=== PATIENT | male | born 1970 | race Caucasian/White ===

== ENCOUNTER 2021-03-02 07:56 | Emergency (ER) | payer BC ==
[~2021-03-02] VITALS: Ht 182 cm; Wt 111.0 kg
[2021-03-02] MEDS ORDERED: NITROGLYCERIN 0.4 MG SL TABS BTL 25'S SL PRN (08:00)
[2021-03-02] MEDS ORDERED: ASPIRIN 81 MG CHEW (CHILDREN'S ASA) PO ONE (08:00)
--- OUTSIDE RECORDS SUMMARY | 2021-03-02 08:01 | XMS REPORT ---
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 Medications Active Name Start Date Estimated Completion Date SIG Co mments fluticasone propionate 50 mcg/actuation nasal spray,suspension spray 1 spray (50 mcg) in each nostril by intranasal route once daily Name Start Date Expiration Date SIG Comments valacyclovir 1 gram oral tablet 05/25/2018 05/20/2019 take 1 tablet (1,000 mg) by oral route once daily for 90 days amoxicillin 500 mg oral tablet 01/30/2019 02/06/2019 t darlin 1 tablet (500 mg) by oral route every 12 hours for 7 days Discontinued Name Start Date Discontinued Date SIG Comments baclofen 20 mg oral tablet 01/28/2016 02/19/2016 take 1 tablet (20 mg) by oral route 3 times per day montelukast 10 mg oral tablet 01/30/2019 02/23/2020 ta ke 1 tablet (10 mg) by oral route once daily in the evening omeprazole 20 mg oral capsule,delayed release(DR/EC) 02/23/2020 09/06/2020 take 1 capsule (20 mg) by oral route once daily before a meal constipation Problem List Description Status Onset Abdominal pain, lower Active 02/19/2016 Spermatocele Active 02/19/2016 Bilateral groin pain Active 02/19/2016 Vital Signs Date Time BP-Sys(mm[Hg] BP-Rtinidad(mm[Hg]) HR(bpm) RR(rpm) Temp WT HT HC BMI BSA BMI Percentile O2 Sat(%) 12/20/2020 7:58:00 AM 130 mm[Hg] 78 mm[Hg] 64 {beats}/min 18 rpm 97.5 F 254 lbs 72 in 34.4482 kg/m2 2.4193 m2 99 % 09/06/2020 8:04:00 AM 130 mm[Hg] 78 mm[Hg] 64 {beats}/min 18 rpm 98.6 F 248 lbs 72 in 33.63 kg/m2 2.39 m2 98 % 02/23/2020 8:04:00 AM 130 mm[Hg] 74 mm[Hg] 71 {beats}/min 18 rpm 97.5 F 244 lbs 72 in 33.09 kg/m2 2.37 m2 99 % 01/30/2019 2:25:00 PM 148 mm[Hg] 82 mm[Hg] 82 {beats}/min 18 rpm 97.5 F 248 lbs 72 in 33.6345 kg/m2 2.3905 m2 95 % 05/12/2018 3:48:00 PM 128 mm[Hg] 60 mm[Hg] 74 {beats}/min 20 rpm 97.9 F 252 lbs 72 in 34.18 kg/m2 2.41 m2 99 % 10/08/2017 8:49:00 AM 134 mm[Hg] 70 mm[Hg] 70 {beats}/min 18 rpm 98.8 F 258 lbs 72 in 34.9907 kg/m2 2.4382 m2 97 % 09/03/2017 7:57:00 AM 148 mm[Hg] 82 mm[Hg] 94 {beats}/min 20 rpm 98.2 F 258 lbs 72 in 34.99 kg/m2 2.44 m2 99 % 02/19/2016 11:31:00 AM 136 mm[Hg] 72 mm[Hg] 74 {beats}/min 17 rpm 97.8 F 252.5 lbs 72 in 34.2448 kg/m2 2.4121 m2 100 % 02/17/2016 4:00:00 PM 138 mm[Hg] 82 mm[Hg] 78 {beats}/min 16 rpm 98.5 F 252.5 lbs 72 in 34.24 kg/m2 2.41 m2 100 % 01/28/2016 10:30:00 AM 135 mm[Hg] 85 mm[Hg] 72 {beats}/min 16 rpm 96.7 F 245 lbs 98 % 02/13/2015 3:16:00 PM 120 mm[Hg] 90 mm[Hg] 75 {beats}/min 98.4 F 256.25 lbs 72 in 34.75 kg/m2 2.43 m2 96 % Social History Name Description Comments Single GED Tobacco Former smoker here and there when he was younger Recovering Alcoholic [employer] History of Procedures Date Ordered Description Order Status 02/19/2016 12:38 PM URINALYSIS AUTO W/O SCOPE Reviewed 02/18/2016 12:00 AM US EXAM SCROTUM Returned 09/03/2017 12:00 AM Home sleep study Reviewed 05/12/2018 12:00 AM HERPES SIMPLEX TYPE 1 TEST Reviewed 05/12/2018 12:00 AM HERPES SIMPLEX TYPE 2 TEST Reviewed 09/06/2020 12:00 AM CHEST X-RAY 2VW FRONTAL&LATL Reviewed 09/06/2020 12:00 AM ECHO EXAM OF ABDOMEN Reviewed Results Summary Date and Description Results 02/19/2016 12:38 PM Clarity Ur CLEAR Color Ur -- ----- Glucose Ur-sCnc -VE Bilirub Ur Ql Strip -VE Ketones Ur Ql Strip -VE Sp Gr Ur Qn 1010 Hgb Ur Ql Strip -VE pH Ur-LsCnc 6.0 Prot Ur Ql Strip -VE Urobilinogen Ur-mCnc -VE Nitrite Ur Ql Strip -VE WBC Est Ur Ql Strip -VE 05/12/2018 4:15 PM HSV 1 IgG, Type Spec 1.130 I ndexHSV 2 IgG, Type Spec 4.070 IndexHSV-2 IgG SupplementalTest Positive History Of Immunizations Not available. History of Past Illness Name Date of Onset Comments Abdominal pain, lower 02/19/2016 Spermatocele 02/19/2016 Bilateral groin pain 02/19/2016 Acid Reflux Feb 13 2015 3:19PM Chest discomfort Feb 13 2015 3:19PM Costochondritis Feb 13 2015 3:19PM Transient insomnia Feb 13 2015 3:19PM Lumbago with sciatica, left side Jan 28 2016 10:32AM Pain in right testicle Feb 17 2016 4:03PM Swelling of right testicle Feb 17 2016 4:03PM Right Bilateral groin pain Feb 19 2016 11:37AM Right Spermatocele Feb 19 2016 11:37AM Right Abdominal pain, lower Feb 19 2016 11:37AM Hypersomnolence Sep 03 2017 7:59AM Incisional hernia Oct 08 2017 8:51AM Vesicular rash May 12 2018 3:50PM Acute non-recurrent maxillary sinusitis Jan 30 2019 2:32PM Abdominal Pain, Generalized Feb 23 2020 8:07AM Right upper quadrant abdominal pain Sep 06 2020 8:07AM Shortness of breath Sep 06 2020 8:07AM Sleep apnea Dec 20 2020 8:01AM Screening for colon cancer Dec 20 2020 8:01AM Screening for ischemic heart disease Dec 20 2020 8:01AM Payers Insurance Name Company Name Plan Name Plan Number Policy Number [place] Group Number Start Date BCBS [employer] [place] [id number] N/A Cigna Cigna [id number] N/A BCBS Bcbs [facility] [id number] N/ A History of Encounters Visit Date Visit Type Provider 12/20/2020 Office visit Jose Miguel Kauffman DO 09/06/2020 Office visit Jose Miguel Kauffman DO 02/23/2020 Office visit Jose Miguel Kauffman DO 01/30/2019 Office visit Jose Miguel Kauffman DO 05/12/2018 Office visit Jose Miguel Kauffman DO 10/08/2017 Office visit Jose Miguel Kauffman DO 09/03/2017 Office visit Jose Miguel Kauffman DO 02/19/2016 Office visit Kiah Perez MD 02/17/2016 Office visit Melida Blankenship MD 01/28/2016 Office visit Daniel Richmond 02/13/2015 Office visit Melida Blankenship MD
--- OUTSIDE RECORDS SUMMARY | 2021-03-02 08:01 | XMS REPORT ---
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
[2021-03-02 08:14] LABS: BASOPHILS % (AUTO) 1 % (0-10); EOSINOPHILS % (AUTO) 1 % (0-10); HEMATOCRIT 46 % (40-54); HEMOGLOBIN 15.5 g/dL (13.3-17.7); LYMPHOCYTES # (AUTO) 0.8 10^3/uL (1.0-4.0); LYMPHOCYTES % (AUTO) 18 % (12-44); MEAN CORPUSCULAR HEMOGLOBIN 30 pg (25-34); MEAN CORPUSCULAR HGB CONC 33 g/dL (32-36); MEAN CORPUSCULAR VOLUME 90 fL (80-99); MEAN PLATELET VOLUME 9.5 fL (9.0-12.2); MONOCYTES % (AUTO) 23 % (0-12); NEUTROPHILS # (AUTO) 2.4 10^3/uL (1.8-7.8); NEUTROPHILS % (AUTO) 56 % (42-75); PLATELET COUNT 200 10^3/uL (130-400); WHITE BLOOD COUNT 4.2 10^3/uL (4.3-11.0)
--- NOTE | 2021-03-02 08:22 | ED Chest Pain ---
General Chief Complaint: Chest Pain Stated Complaint: CHEST PAIN Source: patient History of Present Illness Date Seen by Provider: Mar 02, 2021 Time Seen by Provider: 07:58 Initial Comments PT ARRIVES VIA POV FROM HOME C/O MID CHEST PAIN SINCE YESTERDAY AFTERNOON PAIN IS CONSTANT, AND IS PRESSURE --RATES 5/10 NO RADIATION OF PAIN NOTHING WORSENS OR IMPROVES PAIN STATES HE HAS FELT HOT AND HAD CHILLS OFF AND ON FOR THE LAST COUPLE OF DAYS HAS HAD A SLIGHT COUGH OFF AND ON FOR THE LAST WEEK OR TWO NO SHORTNESS OR BREATH HAS HAD HEADACHE C/O NECK AND BACK ACHE, BUT HAS CHRONIC NECK AND BACK PAIN NO GI SYMPTOMS NO SORE THROAT NO LOSS OF TASTE OR SMELL NO DIZZINESS NO PALPITATIONS NO SYNCOPE NO SWEATS NO HISTORY SIMILAR, OR ANY CARDIAC OR RESPIRATORY PROBLEMS PT HAS NOT TAKEN ANYTHING FOR SYMPTOMS TOOK FLEXERIL AND IBUPROFEN 02/28/21 FOR CHRONIC NECK AND BACK PAIN, BUT HAS NOT TAKEN ANYTHING FOR THIS PAIN SINCE YESTERDAY PT HAS NOT HAD COVID-19 VACCINE. PCP: DR. PETERSON IN [place]--HAS NOT SEEN LATELY Allergies and Home Medications Allergies Coded Allergies: No Known Drug Allergies (Unverified , 07/20/11) Patient Home Medication List Home Medication List Reviewed: Yes Review of Systems Review of Systems Constitutional: see HPI, chills EENTM: No Symptoms Reported Respiratory: See HPI, Cough; Denies Shortness of Air Cardiovascular: See HPI, Chest Pain; Denies Edema, Denies Irregular Heart Rate, Denies Lightheadedness, Denies Palpitations, Denies Syncope Gastrointestinal: No Symptoms Reported; Denies Abdominal Pain, Denies Diarrhea, Denies Nausea, Denies Vomiting Genitourinary: No Symptoms Reported Musculoskeletal: see HPI, back pain, neck pain Skin: no symptoms reported Psychiatric/Neurological: See HPI, Headache Endocrine: No Symptoms Reported Hematologic/Lymphatic: No Symptoms Reported Past [id number]-Mgputa-[id number] Hx Patient Social History Tobacco Use?: No Substance use?: Yes Additional substance use comme: SMOKED MARIJUANA AND SNORTED COCAINE 24 YEARS AGO Alcohol Use?: Yes (HEAVY ETOH USE 24 YEARS AGO) Past Medical History Surgery/Hospitalization HX: TONSILLECTOMY/ADENOIDECTOMY BILATERAL INGUINAL HERNIA REPAIR EVACUATION OF HEMATOMA OF KNEE Surgeries: Yes Abdominal, Adenoidectomy, Tonsillectomy Respiratory: No Cardiac: No Neurological: No Reproductive Disorders: No Genitourinary: No Gastrointestinal: Yes (BILATERAL INGUINAL HERNIA REPAIR) Musculoskeletal: Yes (CHRONIC NECK AND BACK PAIN ) Chronic Back Pain Endocrine: No HEENT: Yes (S/P T&A) Tonsilitis Cancer: No Psychosocial: No Integumentary: No Blood Disorders: No Physical Exam Vital Signs Vital Signs - First Documented 03/02/21 07:56 Temp 36.3 Pulse 66 Resp 15 B/P (MAP) 158/97 (117) Pulse Ox 99 Capillary Refill : Height, Weight, BMI Height: '" Weight: lbs. oz. kg; BMI Method: General Appearance: No Apparent Distress, WD/WN, Other (DOES NOT APPEAR ILL OR TO BE IN ANY DISCOMFORT OR DISTRESS. ) HEENT: PERRL/EOMI Neck: Normal Inspection Respiratory: Chest Non Tender, Normal Breath Sounds, No Accessory Muscle Use, No Respiratory Distress Cardiovascular: Regular Rate, Rhythm, No Edema, No JVD, No Murmur, Normal Peripheral Pulses Gastrointestinal: Non Tender, Soft Extremity: Normal Capillary Refill, Normal Inspection, Normal Range of Motion, Non Tender, No Calf Tenderness, No Pedal Edema Neurologic/Psychiatric: Alert, Oriented x3, No Motor/Sensory Deficits, Normal Mood/Affect, aircraft part assembler II-XII Norm as Tested Skin: Normal Color, Warm/Dry Progress/Results/Core Measures Results/Orders Lab Results Laboratory Tests Test 03/02/21 07:59 03/02/21 08:00 Range/Units Influenza Type A (RT-PCR) Not Detected Not Detecte Influenza Type B (RT-PCR) Not Detected Not Detecte SARS-CoV-2 RNA (RT-PCR) Detected H Not Detecte White Blood Count 4.2 L 4.3-11.0 10^3/uL Red Blood Count 5.14 4.30-5.52 10^6/uL Hemoglobin 15.5 13.3-17.7 g/dL Hematocrit 46 40-54 % Mean Corpuscular Volume 90 80-99 fL Mean Corpuscular Hemoglobin 30 25-34 pg Mean Corpuscular Hemoglobin Concent 33 32-36 g/dL Red Cell Distribution Width 13.2 10.0-14.5 % Platelet Count 200 130-400 10^3/uL Mean Platelet Volume 9.5 9.0-12.2 fL Immature Granulocyte % (Auto) 2 % Neutrophils (%) (Auto) 56 42-75 % Lymphocytes (%) (Auto) 18 12-44 % Monocytes (%) (Auto) 23 H 0-12 % Eosinophils (%) (Auto) 1 0-10 % Basophils (%) (Auto) 1 0-10 % Neutrophils # (Auto) 2.4 1.8-7.8 10^3/uL Lymphocytes # (Auto) 0.8 L 1.0-4.0 10^3/uL Monocytes # (Auto) 1.0 0.0-1.0 10^3/uL Eosinophils # (Auto) 0.0 0.0-0.3 10^3/uL Basophils # (Auto) 0.0 0.0-0.1 10^3/uL Immature Granulocyte # (Auto) 0.1 0.0-0.1 10^3/uL Neutrophils % (Manual) 51 % Lymphocytes % (Manual) 19 % Monocytes % (Manual) 24 % Eosinophils % (Manual) 1 % Basophils % (Manual) 0 % Myelocytes % 1 % Band Neutrophils 4 % Blood Morphology Comment NORMAL Erythrocyte Sedimentation Rate 2 0-30 MM/HR Prothrombin Time 13.1 12.2-14.7 SEC INR Comment 1.0 0.8-1.4 Activated Partial Thromboplast Time 31 24-35 SEC D-Dimer 0.28 0.00-0.49 UG/ML Sodium Level 138 135-145 MMOL/L Potassium Level 3.9 3.6-5.0 MMOL/L Chloride Level 100 98-107 MMOL/L Carbon Dioxide Level 26 21-32 MMOL/L Anion Gap 12 5-14 MMOL/L Blood Urea Nitrogen 10 7-18 MG/DL Creatinine 1.12 0.60-1.30 MG/DL Estimat Glomerular Filtration Rate 69 BUN/Creatinine Ratio 9 Glucose Level 116 H 70-105 MG/DL Calcium Level 9.2 8.5-10.1 MG/DL Corrected Calcium 8.9 8.5-10.1 MG/DL Magnesium Level 2.0 1.6-2.4 MG/DL Total Bilirubin 0.7 0.1-1.0 MG/DL Aspartate Amino Transf (AST/SGOT) 22 5-34 U/L Alanine Aminotransferase (ALT/SGPT) 34 0-55 U/L Alkaline Phosphatase 54 40-136 U/L Lactate Dehydrogenase 207 125-220 U/L Total Creatine Kinase 120 30-200 U/L Creatine Kinase MB 2.3 <6.6 NG/ML Myoglobin 71.0 10.0-92.0 NG/ML Troponin I < 0.028 <0.028 NG/ML C-Reactive Protein High Sensitivity 0.27 0.00-0.50 MG/DL B-Type Natriuretic Peptide 18.4 <100.0 PG/ML Total Protein 7.1 6.4-8.2 GM/DL Albumin 4.4 3.2-4.5 GM/DL Amylase Level 36 25-125 U/L Lipase 11 8-78 U/L Procalcitonin 0.03 <0.10 NG/ML My Orders Orders - IRAMCECILLE DO Cbc With Automated Diff (03/02/21 07:59) Magnesium (03/02/21 07:59) Chest 1 View, Ap/Pa Only (03/02/21 07:59) Ekg Tracing (03/02/21 07:59) Comprehensive Metabolic Panel (03/02/21 07:59) Myoglobin Serum (03/02/21 07:59) Protime With Inr (03/02/21 07:59) Partial Thromboplastin Time (03/02/21 07:59) O2 (03/02/21 07:59) Monitor-Rhythm Ecg Trace Only (03/02/21 07:59) Ed Iv/Invasive Line Start (03/02/21 07:59) Creatine Kinase (03/02/21 07:59) Creatine Kinase Mb (03/02/21 07:59) Lipase (03/02/21 07:59) Amylase (03/02/21 07:59) Bnp [place] (03/02/21 07:59) Fibrin Degradation Products (03/02/21 07:59) Troponin I Roel (03/02/21 07:59) Nitroglycerin 0.4 Mg Btl 25's (Nitrostat (03/02/21 08:00) Aspirin Chewable Tablet (Baby Aspirin Ch (03/02/21 08:00) Procalcitonin (Pct) (03/02/21 07:59) Hs C Reactive Protein (03/02/21 07:59) Erythrocyte Sedimentation Rate (03/02/21 07:59) LDH (03/02/21 07:59) Covid 19 Inhouse Test (03/02/21 07:59) Influenza A And B By Pcr (03/02/21 07:59) Isolation Central Supply Req (03/02/21 07:59) Ekg Tracing (03/02/21 08:13) Manual Differential (03/02/21 08:00) Medications Given in ED Current Medications Medications Dose Ordered Sig/Naseem Route Start Time Stop Time Status Last Admin Dose Admin Aspirin 324 mg ONCE ONCE PO 03/02/21 08:00 03/02/21 08:01 DC 03/02/21 08:16 324 MG Nitroglycerin 0.4 mg UD PRN SL 03/02/21 08:00 03/02/21 08:17 0.4 MG Vital Signs/I&O 03/02/21 07:56 Temp 36.3 Pulse 66 Resp 15 B/P (MAP) 158/97 (117) Pulse Ox 99 Progress Progress Note : Progress Note PLACED IN ISOLATION ROOM PPE WORN AT ALL TIMES COVID-19 TESTING PERFORMED GIVEN ASPIRIN AND NTG WITHOUT SIGNIFICANT IMPROVEMENT, AND DECLINED ANYMORE DUE TO HEADACHE FROM NTG NO COUGH NO FEVER NO HYPOXIA NO DYSPNEA NO ABNORMAL VITALS DISCUSSED BAM / MAB INFUSION RISKS/BENEFITS, AND PT DECLINES. DISCUSSED NEED FOR QUARANTINE DISCUSSED STRICT RETURN PRECAUTIONS. Initial ECG Impression Date: Mar 02, 2021 Initial ECG Impression Time: 08:01 Initial ECG Rate: 64 Initial ECG Rhythm: Normal Sinus Initial ECG Impression: Nonspecific Changes Initial ECG Comparisson: No Previous ECG Available EKG : EKG Time: 08:01 Rate: 64 Rhythm: Normal Sinus ECG Comparisson: No Previous ECG Available Diagnostic Imaging Comments CXR--PER RADIOLOGIST REPORT AT 0836 Findings: Lungs are clear. No failure, effusion or pneumothorax. Impression: Negative. Reviewed: Reviewed by Me Departure Impression Primary Impression: COVID-19 virus infection Disposition: HOME, SELF-CARE Condition: Stable Departure-Patient Inst. Decision time for Depature: 09:18 Referrals: VALENCIA PETERSON DO Patient Instructions: COVID-19 (DC), Preventing the Spread of an Infectious Disease, Bamlanivimab FDA Fact Sheet Add. Discharge Instructions: LOTS OF CLEAR LIQUIDS TYLENOL 1 GRAM AND MOTRIN 800 MG 4 TIMES A DAY FOR PAIN OR FEVER OVER THE COUNTER MUCINEX DM FOR COUGH AND CONGESTION OBTAIN PULSE OXIMETER AND IF THE LEVEL CONSISTENTLY IS BELOW 90%, YOU NEED TO RETURN TO ER RETURN TO ER IF YOU ARE SHORT OF BREATH OR IF YOUR CHEST PRESSURE WORSENS RETURN TO ER IF YOU CANNOT KEEP ANY LIQUIDS DOWN RETURN TO ER IF SYMPTOMS WORSEN FOLLOW UP WITH YOUR DR IF YOU CHANGE YOUR MIND ABOUT RECEIVING THE MONOCLONAL ANTIBODY INFUSION QUARANTINE YOURSELF, ALL HOUSEHOLD MEMBERS AND ALL CLOSE CONTACTS FOR THE NEXT 2 WEEKS All discharge instructions reviewed with patient and/or family. Voiced understanding. Scripts No Active Prescriptions or Reported Meds Work/School Note: Work Release Form Date Seen in the Emergency Department: Mar 02, 2021 Return to Work: Mar 17, 2021 CECILLE WALDEN DO Mar 02, 2021 08:22
--- NOTE | 2021-03-02 08:31 | Diagnostic Imaging Report ---
Indication: Chest pain. Findings: Lungs are clear. No failure, effusion or pneumothorax. Impression: Negative. Dictated by: Dictated on workstation # [id number]
[2021-03-02 08:35] LABS: PROTHROMBIN TIME PATIENT 13.1 SEC (12.2-14.7)
[2021-03-02 08:36] LABS: ALBUMIN 4.4 GM/DL (3.2-4.5); POTASSIUM 3.9 MMOL/L (3.6-5.0)
[2021-03-02 08:37] LABS: BAND NEUTROPHILS 4 %; BASOPHILS % (MANUAL) 0 %; EOSINOPHILS % (MANUAL) 1 %; LYMPHOCYTES % (MANUAL) 19 %; MONOCYTES % (MANUAL) 24 %; MYELOCYTES % 1 %; NEUTROPHILS % (MANUAL) 51 %
[2021-03-02 08:38] LABS: CALCIUM 9.2 MG/DL (8.5-10.1); RBC MORPH NORMAL
[2021-03-02 08:39] LABS: TOTAL PROTEIN 7.1 GM/DL (6.4-8.2)
[2021-03-02 08:41] LABS: BILIRUBIN,TOTAL 0.7 MG/DL (0.1-1.0)
[2021-03-02 08:43] LABS: CREATININE SERUM 1.12 MG/DL (0.60-1.30)
[2021-03-02 08:55] LABS: CREATINE KINASE MB 2.3 NG/ML (<6.6)
[2021-03-02 09:48] VITALS: BP 142/78
== END 2021-03-02 09:48 | disposition home or self-care (01) ==
LOC: EDUNIT# 07:56 → ER 07:58
DX: U07.1 COVID-19 (principal); G89.29 Other chronic pain; M54.2 Cervicalgia; M54.9 Dorsalgia, unspecified; Z79.899 Other long term (current) drug therapy
CPT/HCPCS: 36415; 71045; 80053; 82150; 82550; 82553; 83615; 83690; 83735; 83874; 83880; 84145; 84484; 85007; 85027; 85379; 85610; 85652; 85730; 86141; 87636; 93005; 93041